=== PATIENT | female | born 1935 | race Caucasian/White ===

== ENCOUNTER → 2016-03-11 | Day surgery (SDC) | payer OTHER ==
[~2016-03-11] VITALS: Ht 165.1 cm; Wt 63.5 kg
[~2016-03-11] MED LIST: CALAN SR180 MG PO; NORCO 325 MG-51 TAB PO; PLAVIX75 M1 PO; UNITHROID112 MCG PO
--- NOTE | 2016-03-11 15:57 | Operative Report ---
Operative/Inv Procedure Report Surgery Date: 03/11/16 Name of Procedure: rectocele repair with mesh, cystoscopy Pre-Operative Diagnosis: rectocele grade 4 Post-Operative Diagnosis: same Estimated Blood Loss: less than 50ml Surgeon/Platform Engineer: ANH SOUSA MD Anesthesia: laryngeal mask airway Implants: vaginal mesh Complications: none Condition: stable Operative Indication: rectocele symptomatic with chronic constipation and need to splint Operative/Procedure Note Note: This an operative dictation on patient Sofia Rea. She was identified in the holding area and consented for rectocele repair with vaginal mesh and cystoscopy. The risks benefits and alternatives of the surgery were given and all questions were answered for her and her family members. Patient was taken to the operating room placed on the operating table in the supine position. Once timeout was performed LMA anesthesia was performed and IV antibiotics were infused. She was placed in the dorsal lithotomy position and prepped and draped in the standard sterile fashion. Marr catheter was placed at the beginning of the surgery and the bladder was emptied and placed on the patient's abdomen. A Munday retractor was placed for visualization of the vaginal vault. 1% lidocaine with epinephrine was infiltrated into the posterior vaginal wall taking care not to injure the rectum. The vaginal flaps are created taking care not to injure the rectum using sharp and blunt dissection. Periodic rectal exams were performed to ensure that the rectum was not injured. Once the rectocele was completely dissected free of the vaginal epithelium the retropubic space was entered and the sacrospinous process was located on both sides followed by the sacrospinous ligament. The rectocele was first reduced using imbrication of the fascial defect. This was followed by placement of elevate posterior vaginal mesh. The mesh arms that are provided by the kit were placed into the sacrospinous ligaments on the right and left side. These were seen to be in good position. The mesh was then placed over the mesh arms and secured in place proximally and distally. The grommets were then placed over the mesh arms and was secured and the mesh was placed in a tension-free manner. It was seen to be in good position and reduce the rectocele nicely. The excess mesh arms were then cut and sent off the table. Area was copiously irrigated with bacitracin irrigation. The incision was closed with running locking 2-0 Vicryl suture after one piece of Surgicel was placed into the right retropubic space for some oozing. The peritoneum was repaired with 3-0 Vicryl suture. The methylene blue was given after the mesh arms were placed to check for the patency of the ureters. A cystoscopy was performed and the bladder was globally inspected. There were no abnormalities appreciated and the ureteral orifices were easily identified in the normal anatomic position. Blue efflux was seen to emanate from both ureteral orifices with good force. The bladder was emptied and the cystoscope was removed. The vagina was packed with 2 inch vaginal packing impregnated with bacitracin ointment. Sponge and needle count were correct at the end of the case. Patient tolerated the procedure well. Findings: rectocele grade 4. no mesh in bladder or urethra. Good ureteral efflux from both ureteral orifices cystoscopically.
== END ==
LOC: STS 01-29 07:00
DX: N81.6 Rectocele (principal); K59.09 Other constipation; Q61.3 Polycystic kidney, unspecified; Q44.6 Cystic disease of liver; I10 Essential (primary) hypertension; E03.9 Hypothyroidism, unspecified
CPT/HCPCS: J0131; J0744; J2250; J7060